=== PATIENT | male | born 1980 | race Caucasian/White ===

== ENCOUNTER 2018-09-11 23:34 | Emergency (ER) | payer MEDICAID ==
[~2018-09-11] VITALS: Ht 180.3 cm; Wt 95.5 kg
[2018-09-12 03:25] LABS: BASOPHILS % (AUTO) 1.3 % (0.0-2.0); EOSINOPHILS % (AUTO) 3.2 % (1.0-6.0); HEMATOCRIT 30.1 % (41-53); HEMOGLOBIN 10.3 g/dL (13.5-17.5); LYMPHOCYTES # (AUTO) 2.7 K/uL (1.0-4.8); LYMPHOCYTES % (AUTO) 62.1 % (22.0-44.0); MEAN CORPUSCULAR HEMOGLOBIN 32.3 pg (26.0-34.0); MEAN CORPUSCULAR VOLUME 95 fL (80-100); MONOCYTES # (AUTO) 0.4 K/uL (0.1-1.0); MONOCYTES % (AUTO) 8.4 % (2.0-9.0); NEUTROPHILS # (AUTO) 1.1 K/uL (1.8-7.7); PLATELET COUNT (AUTO) 52 K/uL (150-450); RED BLOOD CELL COUNT(AUTO) 3.17 MIL/uL (4.50-5.90); RED CELL DISTRIBUTION WIDTH 24.1 % (11.5-14.5)
[2018-09-12 03:44] LABS: ANION GAP 6 mmol/L (8-16); CARBON DIOXIDE 29 mmol/L (22-29); CHLORIDE 111 mmol/L (98-107); CREATININE 0.77 mg/dL (0.60-1.30); GLOMERULAR FILTR. RATE CALC > 60 mL/min (>60); GLUCOSE,RANDOM 97 mg/dL (70-110); POTASSIUM 3.4 mmol/L (3.5-5.1); SODIUM SERUM 146 mmol/L (136-145); UREA NITROGEN, BLOOD 5 mg/dL (7-18)
[2018-09-12 03:50] LABS: ALANINE AMINOTRANSFERASE 30 U/L (12-78); ALBUMIN 2.3 g/dL (3.4-5.0); ALKALINE PHOSPHATASE 158 U/L (46-116); ASPARTATE AMINOTRANSFERASE 88 U/L (15-37); BILIRUBIN,TOTAL 3.5 mg/dL (0.1-1.0); TOTAL PROTEIN, SERUM 7.2 g/dL (6.4-8.2)
[2018-09-12 04:30] VITALS: BP 139/75
== END 2018-09-12 06:28 | disposition home or self-care (01) ==
LOC: EMS 23:34
DX: F32.9 Major depressive disorder, single episode, unspecified (principal); F10.129 Alcohol abuse with intoxication, unspecified; I10 Essential (primary) hypertension; F17.210 Nicotine dependence, cigarettes, uncomplicated; Z90.49 Acquired absence of other specified parts of digestive tract; Z88.0 Allergy status to penicillin; Y90.8 Blood alcohol level of 240 mg/100 ml or more
CPT/HCPCS: 36415; 80053; 85025; 99284; G0480

== ENCOUNTER 2019-09-21 18:04 | Inpatient (IN) | payer MEDICAID, OTHER ==
[~2019-09-21] VITALS: Ht 180.3 cm; Wt 98.9 kg
[~2019-09-21 18:04] MED LIST: ESCI10TA PO; GABA-531 PO; TRAZ-257 PO
[2019-09-21 18:43] LABS: BASOPHILS % (AUTO) 0.8 % (0.0-2.0); EOSINOPHILS % (AUTO) 6.9 % (1.0-6.0); HEMATOCRIT 33.7 % (41-53); HEMOGLOBIN 11.5 g/dL (13.5-17.5); LYMPHOCYTES # (AUTO) 1.8 K/uL (1.0-4.8); MEAN CORPUSCULAR HEMOGLOBIN 31.8 pg (26.0-34.0); MEAN CORPUSCULAR VOLUME 94 fL (80-100); MONOCYTES # (AUTO) 0.5 K/uL (0.1-1.0); MONOCYTES % (AUTO) 11.3 % (2.0-9.0); RED BLOOD CELL COUNT(AUTO) 3.61 MIL/uL (4.50-5.90); RED CELL DISTRIBUTION WIDTH 18.5 % (11.5-14.5)
[2019-09-21 18:53] LABS: ANION GAP 10 mmol/L (8-16); CALCIUM, TOTAL 9.1 mg/dL (8.8-10.5); CARBON DIOXIDE 25 mmol/L (22-29); CHLORIDE 109 mmol/L (98-107); CREATININE 0.92 mg/dL (0.60-1.30); GLOMERULAR FILTR. RATE CALC > 60 mL/min (>60); GLUCOSE,RANDOM 88 mg/dL (70-110); POTASSIUM 3.8 mmol/L (3.5-5.1); SODIUM SERUM 144 mmol/L (136-145); UREA NITROGEN, BLOOD 8 mg/dL (7-18)
[2019-09-21 18:59] LABS: ALANINE AMINOTRANSFERASE 30 U/L (12-78); ALKALINE PHOSPHATASE 123 U/L (46-116); ASPARTATE AMINOTRANSFERASE 47 U/L (15-37); BILIRUBIN,TOTAL 4.6 mg/dL (0.1-1.0); TOTAL PROTEIN, SERUM 6.8 g/dL (6.4-8.2)
[2019-09-21 19:35] LABS: PLATELET COUNT (AUTO) 72 K/uL (150-450); PLATELET MORPHOLOGY COMMENT GIANT PLTS PRESENT
[2019-09-21 19:48] LABS: AMPHET/METH SCREEN,URINE NEGATIVE (NEGATIVE); BARBITURATE SCREEN, URINE NEGATIVE (NEGATIVE); BENZODIAZEPINES SCREEN,URINE NEGATIVE (NEGATIVE); CANNABINOID SCREEN,URINE NEGATIVE (NEGATIVE); COCAINE SCREEN,URINE NEGATIVE (NEGATIVE); METHADONE SCREEN, URINE NEGATIVE (NEGATIVE); OPIATE SCREEN,URINE NEGATIVE (NEGATIVE)
[2019-09-21 19:49] LABS: PHENCYCLIDINE SCREEN,URINE NEGATIVE (NEGATIVE)
[2019-09-21] MEDS ORDERED: ZOLPIDEM TARTRATE 10 MG TABLET PO PRN (22:45)
[2019-09-21] MEDS ORDERED: LORazepam 2 MG TABLET PO PRN (22:45)
[2019-09-22 01:13] VITALS: BP 135/81
[2019-09-22] MEDS ORDERED: INFLUENZA VIRUS VACCINE QVS 2019-20 (3YR+)/PF 60 MCG/0.5 ML SYRINGE IM ONE (01:30)
[2019-09-22 02:07] VITALS: BP 135/81
[2019-09-22] MEDS ORDERED: ONDANSETRON HCL 4 MG TABLET PO PRN (07:15)
[2019-09-22] MEDS ORDERED: CloNIDine HCL 0.1 MG TABLET PO PRN (07:15)
[2019-09-22] MEDS ORDERED: NICOTINE 14 MG/24 HOUR PATCH TD PRN (07:15)
[2019-09-22] MEDS ORDERED: DOCUSATE SODIUM 100 MG CAPSULE PO PRN (07:15)
[2019-09-22] MEDS ORDERED: ACETAMINOPHEN 325 MG TABLET PO PRN (07:15)
[2019-09-22] MEDS ORDERED: GuaiFENesin/D-METHORPHAN [SUGAR-FREE] 200-20MG/10 ML SYRUP UDCUP PO PRN (07:15)
[2019-09-22] MEDS ORDERED: MAGNESIUM HYDROXIDE SUSPENSION 30 ML UDCUP PO PRN (07:15)
[2019-09-22] MEDS ORDERED: PETROLATUM,WHITE 28 GM JELLY TP PRN (07:15)
[2019-09-22] MEDS ORDERED: MAG HYDROX/AL HYDROX/SIMETH ES 30 ML SUSPENSION UDCUP PO PRN (07:15)
[2019-09-22] MEDS ORDERED: ALBUTEROL SULFATE HFA 90 MCG/PUFF 8 GM INHALER IH PRN (07:15)
[2019-09-22] MEDS ORDERED: LOPERAMIDE HCL 2 MG CAPSULE PO PRN (07:15)
[2019-09-22 07:31] LABS: CHOL/HDL RATIO 2.3 (4.2-7.3)
[2019-09-22 09:44] VITALS: BP 124/63
[2019-09-22] MEDS: BACITRACIN 28.4 GM OINTMENT TP SCH ×2 (09:49→16:28)
[2019-09-22] MEDS: GABAPENTIN 300 MG CAPSULE PO SCH ×2 (13:13→16:29)
[2019-09-22 17:07] VITALS: BP 122/70
[2019-09-22] MEDS: TraZODone HCL 100 MG TABLET PO SCH (20:41)
[2019-09-23] MEDS: BACITRACIN 28.4 GM OINTMENT TP SCH ×2 (09:37→16:53)
[2019-09-23] MEDS: ESCITALOPRAM OXALATE 10 MG TABLET PO SCH (09:38)
[2019-09-23] MEDS: GABAPENTIN 300 MG CAPSULE PO SCH ×3 (09:38→16:53)
[2019-09-23 09:53] VITALS: BP 133/91
[2019-09-23 16:00] VITALS: BP 119/69
[2019-09-23 17:05] VITALS: BP 119/69
[2019-09-23] MEDS: TraZODone HCL 100 MG TABLET PO SCH (21:27)
[2019-09-24] MEDS: GABAPENTIN 300 MG CAPSULE PO SCH ×3 (09:18→16:09)
[2019-09-24] MEDS: ESCITALOPRAM OXALATE 10 MG TABLET PO SCH (09:18)
[2019-09-24] MEDS: BACITRACIN 28.4 GM OINTMENT TP SCH ×2 (09:18→16:09)
[2019-09-24 10:35] VITALS: BP 101/53
[2019-09-24] MEDS: QUEtiapine FUMARATE 25 MG TABLET PO SCH ×2 (12:49→16:09)
[2019-09-24 17:04] VITALS: BP 116/72
[2019-09-24] MEDS: TraZODone HCL 100 MG TABLET PO SCH (20:32)
[2019-09-25 08:52] VITALS: BP 118/75
[2019-09-25] MEDS: GABAPENTIN 300 MG CAPSULE PO SCH ×3 (09:17→16:23)
[2019-09-25] MEDS: ESCITALOPRAM OXALATE 10 MG TABLET PO SCH (09:17)
[2019-09-25] MEDS: QUEtiapine FUMARATE 25 MG TABLET PO SCH ×2 (09:18→16:23)
[2019-09-25] MEDS: BACITRACIN 28.4 GM OINTMENT TP SCH ×2 (10:08→16:23)
[2019-09-25 17:00] VITALS: BP 106/61
[2019-09-25] MEDS: TraZODone HCL 100 MG TABLET PO SCH (20:53)
[2019-09-26] MEDS: QUEtiapine FUMARATE 25 MG TABLET PO SCH ×2 (08:42→16:58)
[2019-09-26] MEDS: ESCITALOPRAM OXALATE 10 MG TABLET PO SCH (08:42)
[2019-09-26] MEDS: GABAPENTIN 300 MG CAPSULE PO SCH ×3 (08:42→16:58)
[2019-09-26] MEDS: BACITRACIN 28.4 GM OINTMENT TP SCH ×2 (08:43→16:58)
[2019-09-26 08:47] VITALS: BP 103/65
[2019-09-26 18:02] VITALS: BP 113/66
[2019-09-26] MEDS: TraZODone HCL 100 MG TABLET PO SCH (21:17)
[2019-09-27] MEDS: ESCITALOPRAM OXALATE 10 MG TABLET PO SCH (09:35)
[2019-09-27] MEDS: BACITRACIN 28.4 GM OINTMENT TP SCH ×2 (09:36→17:07)
[2019-09-27] MEDS: QUEtiapine FUMARATE 25 MG TABLET PO SCH ×2 (09:36→17:07)
[2019-09-27] MEDS: GABAPENTIN 300 MG CAPSULE PO SCH ×3 (09:36→17:07)
[2019-09-27 09:50] VITALS: BP 109/70
[2019-09-27 17:00] VITALS: BP 118/69
[2019-09-27] MEDS: TraZODone HCL 100 MG TABLET PO SCH (21:35)
[2019-09-28 08:30] VITALS: BP 115/66
[2019-09-28] MEDS: GABAPENTIN 300 MG CAPSULE PO SCH ×3 (09:51→16:22)
[2019-09-28] MEDS: QUEtiapine FUMARATE 25 MG TABLET PO SCH ×2 (09:52→16:23)
[2019-09-28] MEDS: ESCITALOPRAM OXALATE 10 MG TABLET PO SCH (09:52)
[2019-09-28] MEDS: BACITRACIN 28.4 GM OINTMENT TP SCH ×2 (09:54→16:22)
[2019-09-28 17:17] VITALS: BP 110/60
[2019-09-28] MEDS: TraZODone HCL 100 MG TABLET PO SCH (20:45)
[2019-09-29 02:39] VITALS: BP 117/66
[2019-09-29] MEDS: BACITRACIN 28.4 GM OINTMENT TP SCH ×2 (08:43→16:13)
[2019-09-29] MEDS: QUEtiapine FUMARATE 25 MG TABLET PO SCH ×2 (08:43→16:12)
[2019-09-29] MEDS: GABAPENTIN 300 MG CAPSULE PO SCH ×3 (08:43→16:12)
[2019-09-29] MEDS: ESCITALOPRAM OXALATE 10 MG TABLET PO SCH (08:43)
[2019-09-29 09:16] VITALS: BP 113/63
[2019-09-29 19:00] VITALS: BP 115/64
[2019-09-29] MEDS: TraZODone HCL 100 MG TABLET PO SCH (20:26)
[2019-09-30 04:37] VITALS: BP 126/77
[2019-09-30 09:15] VITALS: BP 122/78
[2019-09-30] MEDS: QUEtiapine FUMARATE 25 MG TABLET PO SCH ×2 (09:52→16:45)
[2019-09-30] MEDS: GABAPENTIN 300 MG CAPSULE PO SCH ×3 (09:52→16:44)
[2019-09-30] MEDS: ESCITALOPRAM OXALATE 10 MG TABLET PO SCH (09:52)
[2019-09-30] MEDS: BACITRACIN 28.4 GM OINTMENT TP SCH ×2 (09:53→16:45)
[2019-09-30 16:49] VITALS: BP 120/71
[2019-09-30] MEDS: TraZODone HCL 100 MG TABLET PO SCH (21:04)
[2019-10-01] MEDS: QUEtiapine FUMARATE 25 MG TABLET PO SCH ×2 (09:19→16:26)
[2019-10-01] MEDS: GABAPENTIN 300 MG CAPSULE PO SCH ×3 (09:19→16:26)
[2019-10-01] MEDS: ESCITALOPRAM OXALATE 10 MG TABLET PO SCH (09:20)
[2019-10-01] MEDS: BACITRACIN 28.4 GM OINTMENT TP SCH ×2 (09:20→17:00)
[2019-10-01 09:31] VITALS: BP 102/66
[2019-10-01] MEDS: TraZODone HCL 100 MG TABLET PO SCH (20:19)
[2019-10-01 22:06] VITALS: BP 112/70
[2019-10-02 05:59] VITALS: BP 123/70
[2019-10-02] MEDS: ESCITALOPRAM OXALATE 10 MG TABLET PO SCH (10:06)
[2019-10-02] MEDS: HALOPERIDOL 5 MG TABLET PO PRN (10:06)
[2019-10-02] MEDS: GABAPENTIN 300 MG CAPSULE PO SCH ×3 (10:06→17:08)
[2019-10-02] MEDS: IBUPROFEN 400 MG TABLET PO PRN (10:07)
[2019-10-02 10:28] VITALS: BP 125/59
[2019-10-02 17:07] VITALS: BP 122/66
[2019-10-02] MEDS: QUEtiapine FUMARATE 100 MG TABLET PO SCH (17:08)
[2019-10-02] MEDS: TraZODone HCL 100 MG TABLET PO SCH (20:34)
[2019-10-03 05:06] VITALS: BP 107/63
[2019-10-03] MEDS: BACITRACIN 28.4 GM OINTMENT TP SCH (08:00)
[2019-10-03 09:12] VITALS: BP 103/60
[2019-10-03] MEDS: GABAPENTIN 300 MG CAPSULE PO SCH ×3 (10:27→16:16)
[2019-10-03] MEDS: QUEtiapine FUMARATE 100 MG TABLET PO SCH ×2 (10:27→16:16)
[2019-10-03] MEDS: ESCITALOPRAM OXALATE 10 MG TABLET PO SCH (10:27)
[2019-10-03 16:43] VITALS: BP 117/61
[2019-10-03] MEDS: TraZODone HCL 150 MG TABLET PO SCH (20:13)
[2019-10-04 05:18] VITALS: BP 104/60
[2019-10-04 08:18] VITALS: BP 116/59
[2019-10-04] MEDS: GABAPENTIN 300 MG CAPSULE PO SCH ×3 (08:47→17:15)
[2019-10-04] MEDS: QUEtiapine FUMARATE 100 MG TABLET PO SCH ×2 (08:47→17:15)
[2019-10-04] MEDS: ESCITALOPRAM OXALATE 10 MG TABLET PO SCH (08:47)
[2019-10-04 16:51] VITALS: BP 106/67
[2019-10-04] MEDS: TraZODone HCL 150 MG TABLET PO SCH (20:22)
[2019-10-05 03:10] VITALS: BP 122/73
[2019-10-05] MEDS: IBUPROFEN 400 MG TABLET PO PRN (03:16)
[2019-10-05] MEDS: QUEtiapine FUMARATE 100 MG TABLET PO SCH ×2 (08:27→17:02)
[2019-10-05] MEDS: ESCITALOPRAM OXALATE 10 MG TABLET PO SCH (08:27)
[2019-10-05] MEDS: GABAPENTIN 300 MG CAPSULE PO SCH ×3 (08:27→17:02)
[2019-10-05 11:24] VITALS: BP 113/80
[2019-10-05 16:30] VITALS: BP 124/78
[2019-10-05] MEDS: TraZODone HCL 150 MG TABLET PO SCH (21:36)
[2019-10-06 01:37] VITALS: BP 111/60
[2019-10-06] MEDS: QUEtiapine FUMARATE 100 MG TABLET PO SCH (08:36)
[2019-10-06] MEDS: ESCITALOPRAM OXALATE 10 MG TABLET PO SCH (08:36)
[2019-10-06] MEDS: GABAPENTIN 300 MG CAPSULE PO SCH ×3 (08:36→16:27)
[2019-10-06 09:23] VITALS: BP 149/70
[2019-10-06 16:27] VITALS: BP 122/74
[2019-10-06] MEDS: HALOPERIDOL 5 MG TABLET PO PRN (16:30)
[2019-10-06] MEDS: TraZODone HCL 150 MG TABLET PO SCH (20:42)
[2019-10-06] MEDS: QUEtiapine FUMARATE 200 MG TABLET PO SCH (20:42)
[2019-10-06 20:46] VITALS: BP 125/77
[2019-10-06 23:18] VITALS: BP 125/77
[2019-10-06] MEDS: IBUPROFEN 400 MG TABLET PO PRN (23:18)
[2019-10-06 23:40] VITALS: BP 146/95
[2019-10-07 00:15] VITALS: BP 125/52
[2019-10-07 01:15] VITALS: BP 114/71
[2019-10-07 02:15] VITALS: BP 105/55
[2019-10-07] MEDS: ESCITALOPRAM OXALATE 20 MG TABLET PO SCH (09:14)
[2019-10-07] MEDS: GABAPENTIN 300 MG CAPSULE PO SCH ×3 (09:14→16:53)
[2019-10-07] MEDS: QUEtiapine FUMARATE 100 MG TABLET PO SCH (09:14)
[2019-10-07 09:43] VITALS: BP 129/71
[2019-10-07] MEDS: TraZODone HCL 150 MG TABLET PO SCH (20:36)
[2019-10-07] MEDS: QUEtiapine FUMARATE 200 MG TABLET PO SCH (20:36)
[2019-10-07 21:12] VITALS: BP 105/78
[2019-10-08] MEDS: QUEtiapine FUMARATE 100 MG TABLET PO SCH (09:26)
[2019-10-08] MEDS: GABAPENTIN 300 MG CAPSULE PO SCH ×3 (09:26→16:24)
[2019-10-08] MEDS: ESCITALOPRAM OXALATE 20 MG TABLET PO SCH (09:26)
[2019-10-08 09:58] VITALS: BP 127/71
[2019-10-08 16:03] VITALS: BP 141/69
[2019-10-08] MEDS: QUEtiapine FUMARATE 200 MG TABLET PO SCH (20:19)
[2019-10-08] MEDS: TraZODone HCL 150 MG TABLET PO SCH (20:19)
[2019-10-09] MEDS: ESCITALOPRAM OXALATE 20 MG TABLET PO SCH (08:50)
[2019-10-09] MEDS: GABAPENTIN 300 MG CAPSULE PO SCH ×3 (08:50→16:28)
[2019-10-09] MEDS: QUEtiapine FUMARATE 100 MG TABLET PO SCH (08:50)
[2019-10-09 12:58] VITALS: BP 138/79
[2019-10-09 17:00] VITALS: BP 119/59
[2019-10-09 17:02] VITALS: BP 119/57
[2019-10-09] MEDS: IBUPROFEN 400 MG TABLET PO PRN (17:06)
[2019-10-09] MEDS: QUEtiapine FUMARATE 200 MG TABLET PO SCH (21:13)
[2019-10-09] MEDS: TraZODone HCL 150 MG TABLET PO SCH (21:13)
[2019-10-10 04:30] VITALS: BP 128/69
[2019-10-10] MEDS: IBUPROFEN 400 MG TABLET PO PRN (04:39)
[2019-10-10 08:49] VITALS: BP 146/79
[2019-10-10] MEDS: ESCITALOPRAM OXALATE 20 MG TABLET PO SCH (08:50)
[2019-10-10] MEDS: GABAPENTIN 300 MG CAPSULE PO SCH ×3 (08:50→16:45)
[2019-10-10] MEDS: QUEtiapine FUMARATE 100 MG TABLET PO SCH (08:50)
[2019-10-10 17:28] VITALS: BP 122/73
[2019-10-10] MEDS: QUEtiapine FUMARATE 200 MG TABLET PO SCH (20:45)
[2019-10-10] MEDS: TraZODone HCL 150 MG TABLET PO SCH (20:50)
[2019-10-11 03:32] VITALS: BP 110/76
[2019-10-11] MEDS: GABAPENTIN 300 MG CAPSULE PO SCH ×3 (08:21→16:50)
[2019-10-11] MEDS: ESCITALOPRAM OXALATE 20 MG TABLET PO SCH (08:21)
[2019-10-11] MEDS: QUEtiapine FUMARATE 100 MG TABLET PO SCH (08:22)
[2019-10-11 09:22] VITALS: BP 121/84
[2019-10-11 16:30] VITALS: BP 135/82
[2019-10-11] MEDS: HALOPERIDOL 5 MG TABLET PO PRN (17:13)
== END 2019-10-11 19:45 | disposition left against medical advice (07) | DRG 885 ==
LOC: EMS 18:06 → 3EI 23:30
DX: F33.3 Major depressive disorder, recurrent, severe with psychotic symptoms (principal); R45.851 Suicidal ideations; K74.60 Unspecified cirrhosis of liver; F41.9 Anxiety disorder, unspecified; K59.00 Constipation, unspecified; D64.9 Anemia, unspecified; F10.10 Alcohol abuse, uncomplicated; Y90.9 Presence of alcohol in blood, level not specified; I10 Essential (primary) hypertension; F19.10 Other psychoactive substance abuse, uncomplicated; F17.210 Nicotine dependence, cigarettes, uncomplicated; Z53.29 Procedure and treatment not carried out because of patient's decision for other reasons; Z91.19 Patient's noncompliance with other medical treatment and regimen; Z90.49 Acquired absence of other specified parts of digestive tract; Z98.890 Other specified postprocedural states; Z79.899 Other long term (current) drug therapy; Z91.5 Personal history of self-harm; Z88.0 Allergy status to penicillin; Z59.0 Homelessness; Z28.21 Immunization not carried out because of patient refusal
CPT/HCPCS: 73502; 87081; G0480

== ENCOUNTER 2019-11-09 16:23 | Inpatient (IN) | payer MEDICAID, OTHER ==
[~2019-11-09] VITALS: Ht 180.3 cm; Wt 91.2 kg
[2019-11-09 17:40] LABS: EOSINOPHILS % (AUTO) 6.8 % (1.0-6.0); HEMOGLOBIN 10.8 g/dL (13.5-17.5); LYMPHOCYTES % (AUTO) 55.2 % (22.0-44.0); MEAN CORPUSCULAR HEMOGLOBIN 32.5 pg (26.0-34.0); MEAN CORPUSCULAR HGB CONC 33.6 G/dL (31.0-37.0); MEAN CORPUSCULAR VOLUME 97 fL (80-100); MONOCYTES # (AUTO) 0.3 K/uL (0.1-1.0); MONOCYTES % (AUTO) 8.8 % (2.0-9.0); NEUTROPHILS % (AUTO) 28.2 % (40.0-70.0); PLATELET COUNT (AUTO) 152 K/uL (150-450); RED BLOOD CELL COUNT(AUTO) 3.32 MIL/uL (4.50-5.90); RED CELL DISTRIBUTION WIDTH 18.9 % (11.5-14.5)
[2019-11-09 17:51] LABS: ANION GAP 7 mmol/L (8-16); CALCIUM, TOTAL 8.6 mg/dL (8.8-10.5); CARBON DIOXIDE 27 mmol/L (22-29); CHLORIDE 108 mmol/L (98-107); CREATININE 0.87 mg/dL (0.60-1.30); GLOMERULAR FILTR. RATE CALC > 60 mL/min (>60); GLUCOSE,RANDOM 83 mg/dL (70-110); POTASSIUM 3.6 mmol/L (3.5-5.1); SODIUM SERUM 142 mmol/L (136-145); UREA NITROGEN, BLOOD 6 mg/dL (7-18)
[2019-11-09 17:56] LABS: AMPHET/METH SCREEN,URINE NEGATIVE (NEGATIVE); BARBITURATE SCREEN, URINE NEGATIVE (NEGATIVE); BENZODIAZEPINES SCREEN,URINE NEGATIVE (NEGATIVE); CANNABINOID SCREEN,URINE NEGATIVE (NEGATIVE); COCAINE SCREEN,URINE NEGATIVE (NEGATIVE); METHADONE SCREEN, URINE NEGATIVE (NEGATIVE); OPIATE SCREEN,URINE NEGATIVE (NEGATIVE)
[2019-11-09 17:57] LABS: ALANINE AMINOTRANSFERASE 25 U/L (12-78); ALBUMIN 2.8 g/dL (3.4-5.0); ALKALINE PHOSPHATASE 133 U/L (46-116); ASPARTATE AMINOTRANSFERASE 40 U/L (15-37); BILIRUBIN,TOTAL 1.4 mg/dL (0.1-1.0); TOTAL PROTEIN, SERUM 7.7 g/dL (6.4-8.2)
[2019-11-09 18:02] LABS: PHENCYCLIDINE SCREEN,URINE NEGATIVE (NEGATIVE)
[2019-11-09] MEDS ORDERED: HALOPERIDOL 5 MG TABLET PO PRN (20:30)
[2019-11-09] MEDS ORDERED: LORazepam 2 MG TABLET PO PRN (20:30)
[2019-11-09] MEDS ORDERED: ZOLPIDEM TARTRATE 10 MG TABLET PO PRN (20:30)
[2019-11-09 22:24] VITALS: BP 120/69
[2019-11-10] MEDS: BACITRACIN 28.4 GM OINTMENT TP SCH (08:32)
[2019-11-10] MEDS: NICOTINE 21 MG/24 HOUR PATCH TD SCH (08:32)
[2019-11-10 08:50] LABS: CHOL/HDL RATIO 3.4 (4.2-7.3)
[2019-11-10 09:21] VITALS: BP 130/75
[2019-11-10 16:22] VITALS: BP 135/77
[2019-11-10] MEDS: QUEtiapine FUMARATE 100 MG TABLET PO SCH (20:29)
[2019-11-10] MEDS: TraZODone HCL 50 MG TABLET PO SCH (20:30)
[2019-11-11 08:30] VITALS: BP 126/65
[2019-11-11] MEDS: THIAMINE HCL 100 MG TABLET PO SCH (09:24)
[2019-11-11] MEDS: NICOTINE 21 MG/24 HOUR PATCH TD SCH (09:24)
[2019-11-11] MEDS: ESCITALOPRAM OXALATE 20 MG TABLET PO SCH (09:24)
[2019-11-11] MEDS: MULTIVITAMINS WITH MINERALS, THERAPEUTIC TABLET PO SCH (09:24)
[2019-11-11] MEDS: FOLIC ACID 1 MG TABLET PO SCH (09:24)
[2019-11-11] MEDS: BACITRACIN 28.4 GM OINTMENT TP SCH (09:25)
[2019-11-11 18:27] VITALS: BP 138/74
[2019-11-11] MEDS: QUEtiapine FUMARATE 100 MG TABLET PO SCH (20:39)
[2019-11-11] MEDS: TraZODone HCL 50 MG TABLET PO SCH (20:39)
[2019-11-12 08:49] VITALS: BP 125/86
[2019-11-12] MEDS: FOLIC ACID 1 MG TABLET PO SCH (08:53)
[2019-11-12] MEDS: NICOTINE 21 MG/24 HOUR PATCH TD SCH (08:53)
[2019-11-12] MEDS: MULTIVITAMINS WITH MINERALS, THERAPEUTIC TABLET PO SCH (08:53)
[2019-11-12] MEDS: ESCITALOPRAM OXALATE 20 MG TABLET PO SCH (08:53)
[2019-11-12] MEDS: THIAMINE HCL 100 MG TABLET PO SCH (08:53)
[2019-11-12] MEDS: BACITRACIN 28.4 GM OINTMENT TP SCH (08:54)
[2019-11-12] MEDS: QUEtiapine FUMARATE 25 MG TABLET PO SCH (12:17)
[2019-11-12 16:38] VITALS: BP 117/60
[2019-11-12] MEDS: TraZODone HCL 50 MG TABLET PO SCH (20:36)
[2019-11-12] MEDS: QUEtiapine FUMARATE 200 MG TABLET PO SCH (20:36)
[2019-11-13] MEDS: MULTIVITAMINS WITH MINERALS, THERAPEUTIC TABLET PO SCH (09:00)
[2019-11-13] MEDS: FOLIC ACID 1 MG TABLET PO SCH (09:00)
[2019-11-13] MEDS: THIAMINE HCL 100 MG TABLET PO SCH (09:00)
[2019-11-13] MEDS: BACITRACIN 28.4 GM OINTMENT TP SCH (09:00)
[2019-11-13] MEDS: ESCITALOPRAM OXALATE 20 MG TABLET PO SCH (09:00)
[2019-11-13] MEDS: NICOTINE 21 MG/24 HOUR PATCH TD SCH (09:00)
[2019-11-13] MEDS: QUEtiapine FUMARATE 25 MG TABLET PO SCH (09:00)
[2019-11-13 09:02] VITALS: BP 104/65
[2019-11-13 18:56] VITALS: BP 94/54
[2019-11-13] MEDS: TraZODone HCL 50 MG TABLET PO SCH (20:43)
[2019-11-13] MEDS: QUEtiapine FUMARATE 200 MG TABLET PO SCH (20:43)
[2019-11-14 08:58] VITALS: BP 59/40
[2019-11-14 09:30] VITALS: BP 98/69
[2019-11-14] MEDS: THIAMINE HCL 100 MG TABLET PO SCH (11:32)
[2019-11-14] MEDS: MULTIVITAMINS WITH MINERALS, THERAPEUTIC TABLET PO SCH (11:32)
[2019-11-14] MEDS: FOLIC ACID 1 MG TABLET PO SCH (11:32)
[2019-11-14] MEDS: ESCITALOPRAM OXALATE 20 MG TABLET PO SCH (11:33)
[2019-11-14] MEDS: BACITRACIN 28.4 GM OINTMENT TP SCH (11:35)
[2019-11-14] MEDS: NICOTINE 21 MG/24 HOUR PATCH TD SCH (11:43)
[2019-11-14 13:30] VITALS: BP 100/58
[2019-11-14 19:45] VITALS: BP 105/64
[2019-11-14] MEDS: QUEtiapine FUMARATE 200 MG TABLET PO SCH (20:17)
[2019-11-14] MEDS: TraZODone HCL 50 MG TABLET PO SCH (20:17)
[2019-11-15 04:39] VITALS: BP 82/59
[2019-11-15] MEDS ORDERED: IBUPROFEN 400 MG TABLET PO PRN (06:30)
[2019-11-15 08:00] VITALS: BP 95/54
[2019-11-15] MEDS: NICOTINE 21 MG/24 HOUR PATCH TD SCH (08:47)
[2019-11-15] MEDS: FOLIC ACID 1 MG TABLET PO SCH (08:47)
[2019-11-15] MEDS: BACITRACIN 28.4 GM OINTMENT TP SCH (08:47)
[2019-11-15] MEDS: ESCITALOPRAM OXALATE 20 MG TABLET PO SCH (08:47)
[2019-11-15] MEDS: MULTIVITAMINS WITH MINERALS, THERAPEUTIC TABLET PO SCH (08:47)
[2019-11-15] MEDS: THIAMINE HCL 100 MG TABLET PO SCH (08:47)
[2019-11-15 18:21] VITALS: BP 109/65
[2019-11-15] MEDS: QUEtiapine FUMARATE 200 MG TABLET PO SCH (20:18)
[2019-11-15] MEDS: TraZODone HCL 50 MG TABLET PO SCH (20:18)
[2019-11-16 08:00] VITALS: BP 107/63
[2019-11-16] MEDS: ESCITALOPRAM OXALATE 20 MG TABLET PO SCH (08:36)
[2019-11-16] MEDS: NICOTINE 21 MG/24 HOUR PATCH TD SCH (08:36)
[2019-11-16] MEDS: THIAMINE HCL 100 MG TABLET PO SCH (08:36)
[2019-11-16] MEDS: FOLIC ACID 1 MG TABLET PO SCH (08:36)
[2019-11-16] MEDS: MULTIVITAMINS WITH MINERALS, THERAPEUTIC TABLET PO SCH (08:36)
[2019-11-16] MEDS: BACITRACIN 28.4 GM OINTMENT TP SCH (09:15)
[2019-11-16] MEDS ORDERED: TRAZ-252 PO (13:33)
[2019-11-16] MEDS ORDERED: QUET200T PO (13:33)
[2019-11-16] MEDS ORDERED: ESCI20TA PO (13:33)
== END 2019-11-16 14:50 | disposition home or self-care (01) | DRG 885 ==
LOC: EMS 16:23 → 3EI 21:00
PROVIDERS: ADMIT Psychiatry & Neurology Psychiatry; ATTEND Psychiatry & Neurology Psychiatry
DX: F25.9 Schizoaffective disorder, unspecified (principal); F10.231 Alcohol dependence with withdrawal delirium; R45.851 Suicidal ideations; D64.9 Anemia, unspecified; I10 Essential (primary) hypertension; K70.30 Alcoholic cirrhosis of liver without ascites; Z59.0 Homelessness; Z87.891 Personal history of nicotine dependence
CPT/HCPCS: 87635; G0480

== ENCOUNTER 2020-06-04 00:06 | Inpatient (IN) | payer MEDICAID, OTHER ==
[~2020-06-04] VITALS: Ht 180.3 cm; Wt 89.9 kg
[~2020-06-04 00:06] MED LIST changes: -ESCI10TA PO; +ESCI20TA43 PO; -GABA-531 PO; +QUET300T2 PO; +TRAZ-252 PO; -TRAZ-257 PO
[2020-06-04 01:42] LABS: COVID AG,FIA SOURCE NASOPHARYNGEAL
[2020-06-04 01:43] LABS: BASOPHILS % (AUTO) 0.6 % (0.0-2.0); EOSINOPHILS % (AUTO) 6.9 % (1.0-6.0); HEMATOCRIT 35.6 % (41-53); HEMOGLOBIN 12.2 g/dL (13.5-17.5); LYMPHOCYTES # (AUTO) 1.9 K/uL (1.0-4.8); LYMPHOCYTES % (AUTO) 48.6 % (22.0-44.0); MEAN CORPUSCULAR HGB CONC 34.2 G/dL (31.0-37.0); MEAN CORPUSCULAR VOLUME 100 fL (80-100); MONOCYTES # (AUTO) 0.4 K/uL (0.1-1.0); MONOCYTES % (AUTO) 9.1 % (2.0-9.0); NEUTROPHILS # (AUTO) 1.4 K/uL (1.8-7.7); NEUTROPHILS % (AUTO) 34.8 % (40.0-70.0); RED BLOOD CELL COUNT(AUTO) 3.58 MIL/uL (4.50-5.90); RED CELL DISTRIBUTION WIDTH 20.1 % (11.5-14.5)
[2020-06-04 01:53] LABS: ANION GAP 7 mmol/L (8-16); CARBON DIOXIDE 28 mmol/L (22-29); CHLORIDE 108 mmol/L (98-107); CREATININE 0.78 mg/dL (0.60-1.30); GLOMERULAR FILTR. RATE CALC > 60 mL/min (>60); GLUCOSE,RANDOM 94 mg/dL (70-110); POTASSIUM 3.7 mmol/L (3.5-5.1); SODIUM SERUM 143 mmol/L (136-145); UREA NITROGEN, BLOOD 5 mg/dL (7-18)
[2020-06-04 02:00] LABS: ALANINE AMINOTRANSFERASE 52 U/L (12-78); ALBUMIN 3.2 g/dL (3.4-5.0); ALKALINE PHOSPHATASE 160 U/L (46-116); ASPARTATE AMINOTRANSFERASE 77 U/L (15-37); BILIRUBIN,TOTAL 2.7 mg/dL (0.1-1.0); TOTAL PROTEIN, SERUM 6.9 g/dL (6.4-8.2)
[2020-06-04 02:02] LABS: AMPHET/METH SCREEN,URINE NEGATIVE (NEGATIVE); BARBITURATE SCREEN, URINE NEGATIVE (NEGATIVE); BENZODIAZEPINES SCREEN,URINE NEGATIVE (NEGATIVE); CANNABINOID SCREEN,URINE NEGATIVE (NEGATIVE); COCAINE SCREEN,URINE NEGATIVE (NEGATIVE); METHADONE SCREEN, URINE NEGATIVE (NEGATIVE); OPIATE SCREEN,URINE NEGATIVE (NEGATIVE)
[2020-06-04 02:04] LABS: PHENCYCLIDINE SCREEN,URINE NEGATIVE (NEGATIVE)
[2020-06-04] MEDS ORDERED: LORazepam 2 MG TABLET PO PRN (02:30)
[2020-06-04] MEDS ORDERED: HALOPERIDOL 5 MG TABLET PO PRN (02:30)
[2020-06-04 03:06] LABS: PLATELET COUNT (AUTO) 58 K/uL (150-450)
[2020-06-04 15:51] LABS: APPEARANCE,URINE CLEAR (CLEAR); GLUCOSE, URINE (UA) NEGATIVE (NEGATIVE); KETONES,URINE NEGATIVE (NEGATIVE); NITRATE,URINE NEGATIVE (NEGATIVE); PROTEIN,URINE NEGATIVE (NEGATIVE)
[2020-06-04 15:53] LABS: BILIRUBIN,URINE PRELIM. POSITIVE (NEGATIVE)
[2020-06-04 15:54] LABS: LEUKOCYTE ESTERASE ,URINE SMALL (NEGATIVE); OCCULT BLOOD,URINE TRACE (NEGATIVE)
[2020-06-04 15:55] LABS: BACTERIA,URINE None Seen /HPF (None Seen); RBC,URINE 0-2 /HPF (0-2)
[2020-06-04] MEDS ORDERED: PETROLATUM,WHITE 28 GM JELLY TP PRN (22:15)
[2020-06-04] MEDS ORDERED: CloNIDine HCL 0.1 MG TABLET PO PRN (22:15)
[2020-06-04] MEDS ORDERED: ACETAMINOPHEN 325 MG TABLET PO PRN (22:15)
[2020-06-04] MEDS ORDERED: DOCUSATE SODIUM 100 MG CAPSULE PO PRN (22:15)
[2020-06-04] MEDS ORDERED: MAG HYDROX/AL HYDROX/SIMETH ES 30 ML SUSPENSION UDCUP PO PRN (22:15)
[2020-06-04] MEDS ORDERED: BENZOCAINE/MENTHOL LOZENGE PO PRN (22:15)
[2020-06-04] MEDS ORDERED: ONDANSETRON HCL 4 MG TABLET PO PRN (22:15)
[2020-06-04] MEDS ORDERED: BACITRACIN 28 GM OINTMENT TP PRN (22:15)
[2020-06-04] MEDS ORDERED: LOPERAMIDE HCL 2 MG CAPSULE PO PRN (22:15)
[2020-06-04] MEDS ORDERED: ALBUTEROL SULFATE HFA 90 MCG/PUFF 8 GM INHALER IH PRN (22:15)
[2020-06-04] MEDS ORDERED: MAGNESIUM HYDROXIDE SUSPENSION 30 ML UDCUP PO PRN (22:15)
[2020-06-04] MEDS ORDERED: OMEPRAZOLE 20 MG CAPSULE PO PRN (22:15)
[2020-06-04 22:55] VITALS: BP 135/85
[2020-06-05 00:23] VITALS: BP 125/68
[2020-06-05 08:15] LABS: CHOL/HDL RATIO 3.3 (4.2-7.3)
[2020-06-05 08:22] VITALS: BP 118/60
[2020-06-05] MEDS: NICOTINE 21 MG/24 HOUR PATCH TD SCH (09:40)
[2020-06-05 16:24] VITALS: BP 122/70
[2020-06-05 16:29] VITALS: BP 122/70
[2020-06-05] MEDS: IBUPROFEN 600 MG TABLET PO PRN (17:24)
[2020-06-05] MEDS: OLANZapine 7.5 MG TABLET PO SCH (20:36)
[2020-06-05] MEDS: ZOLPIDEM TARTRATE 10 MG TABLET PO PRN (20:36)
[2020-06-06 00:34] VITALS: BP 115/69
[2020-06-06 08:18] LABS: BASOPHILS % (AUTO) 0.9 % (0.0-2.0); EOSINOPHILS % (AUTO) 5.6 % (1.0-6.0); HEMATOCRIT 34.9 % (41-53); HEMOGLOBIN 11.9 g/dL (13.5-17.5); LYMPHOCYTES # (AUTO) 1.5 K/uL (1.0-4.8); LYMPHOCYTES % (AUTO) 51.7 % (22.0-44.0); MEAN CORPUSCULAR HEMOGLOBIN 33.9 pg (26.0-34.0); MEAN CORPUSCULAR HGB CONC 34.1 G/dL (31.0-37.0); MEAN CORPUSCULAR VOLUME 99 fL (80-100); MONOCYTES # (AUTO) 0.3 K/uL (0.1-1.0); MONOCYTES % (AUTO) 9.8 % (2.0-9.0); NEUTROPHILS # (AUTO) 0.9 K/uL (1.8-7.7); PLATELET COUNT (AUTO) 54 K/uL (150-450); RED BLOOD CELL COUNT(AUTO) 3.51 MIL/uL (4.50-5.90); RED CELL DISTRIBUTION WIDTH 19.9 % (11.5-14.5)
[2020-06-06 08:38] LABS: ALANINE AMINOTRANSFERASE 34 U/L (12-78); ALBUMIN 2.6 g/dL (3.4-5.0); ALKALINE PHOSPHATASE 132 U/L (46-116); ANION GAP 6 mmol/L (8-16); ASPARTATE AMINOTRANSFERASE 44 U/L (15-37); BILIRUBIN,TOTAL 2.6 mg/dL (0.1-1.0); CALCIUM, TOTAL 9.3 mg/dL (8.8-10.5); CARBON DIOXIDE 27 mmol/L (22-29); CHLORIDE 107 mmol/L (98-107); CREATININE 0.77 mg/dL (0.60-1.30); GLOMERULAR FILTR. RATE CALC > 60 mL/min (>60); GLUCOSE,RANDOM 80 mg/dL (70-110); POTASSIUM 3.8 mmol/L (3.5-5.1); SODIUM SERUM 140 mmol/L (136-145); UREA NITROGEN, BLOOD 12 mg/dL (7-18)
[2020-06-06] MEDS: NICOTINE 21 MG/24 HOUR PATCH TD SCH (08:45)
[2020-06-06] MEDS: SERTRALINE HCL 50 MG TABLET PO SCH (08:45)
[2020-06-06 16:01] VITALS: BP 105/68
[2020-06-06] MEDS: IBUPROFEN 600 MG TABLET PO PRN (16:01)
[2020-06-06 16:15] VITALS: BP 105/68
[2020-06-06] MEDS: OLANZapine 7.5 MG TABLET PO SCH (20:09)
[2020-06-06] MEDS: ZOLPIDEM TARTRATE 10 MG TABLET PO PRN (20:48)
[2020-06-07 06:03] VITALS: BP 124/74
[2020-06-07 08:04] VITALS: BP 111/64
[2020-06-07] MEDS: SERTRALINE HCL 50 MG TABLET PO SCH (09:38)
[2020-06-07] MEDS: NICOTINE 21 MG/24 HOUR PATCH TD SCH (09:39)
[2020-06-07 16:10] VITALS: BP 134/81
[2020-06-07] MEDS: OLANZapine 7.5 MG TABLET PO SCH (20:34)
[2020-06-07] MEDS: ZOLPIDEM TARTRATE 10 MG TABLET PO PRN (20:34)
[2020-06-08 00:12] VITALS: BP 141/73
[2020-06-08 08:04] VITALS: BP 136/75
[2020-06-08] MEDS: SERTRALINE HCL 50 MG TABLET PO SCH (09:17)
[2020-06-08] MEDS: NICOTINE 21 MG/24 HOUR PATCH TD SCH (09:17)
[2020-06-08 16:10] VITALS: BP 144/75
[2020-06-08] MEDS: ZOLPIDEM TARTRATE 10 MG TABLET PO PRN (21:12)
[2020-06-08] MEDS: OLANZapine 7.5 MG TABLET PO SCH (21:12)
[2020-06-09 00:26] VITALS: BP 104/62
[2020-06-09] MEDS: SERTRALINE HCL 50 MG TABLET PO SCH (08:14)
[2020-06-09] MEDS: NICOTINE 21 MG/24 HOUR PATCH TD SCH (08:15)
[2020-06-09 08:22] VITALS: BP 126/74
[2020-06-09 16:02] VITALS: BP 110/70
[2020-06-09] MEDS: OLANZapine 7.5 MG TABLET PO SCH (20:17)
[2020-06-09] MEDS: ZOLPIDEM TARTRATE 10 MG TABLET PO PRN (20:56)
[2020-06-10 05:58] VITALS: BP 110/70
[2020-06-10] MEDS: SERTRALINE HCL 50 MG TABLET PO SCH (08:20)
[2020-06-10] MEDS: NICOTINE 21 MG/24 HOUR PATCH TD SCH (08:21)
[2020-06-10] MEDS ORDERED: FOLIC ACID 1 MG TABLET PO SCH (09:00)
[2020-06-10] MEDS ORDERED: THIAMINE 100 MG TABLET PO SCH (09:00)
[2020-06-10 09:04] VITALS: BP 117/66
[2020-06-10] MEDS ORDERED: SERT50TA12 PO (10:38)
[2020-06-10] MEDS ORDERED: OLAN7.5T2 PO (10:38)
== END 2020-06-10 13:30 | disposition home or self-care (01) | DRG 750 ==
LOC: EMS 00:06 → B2S 02:19
PROVIDERS: ADMIT Psychiatry & Neurology Psychiatry; ATTEND Psychiatry & Neurology Psychiatry
DX: F25.1 Schizoaffective disorder, depressive type (principal); I10 Essential (primary) hypertension; R45.851 Suicidal ideations; F10.10 Alcohol abuse, uncomplicated; Y90.9 Presence of alcohol in blood, level not specified; F41.9 Anxiety disorder, unspecified; Z20.828 Contact with and (suspected) exposure to other viral communicable diseases; K74.60 Unspecified cirrhosis of liver; Z87.891 Personal history of nicotine dependence
CPT/HCPCS: 80074; 87081; 87426; G0480

== ENCOUNTER 2021-01-29 01:01 | Emergency (ER) | payer MEDICAID, OTHER ==
[~2021-01-29] VITALS: Ht 180.3 cm; Wt 90.9 kg
[~2021-01-29 01:01] MED LIST changes: -ESCI20TA43 PO; +OLAN7.5T22 PO; -QUET300T2 PO; +SERT-158 PO; -TRAZ-252 PO
[2021-01-29 02:10] LABS: BASOPHILS % (AUTO) 1.4 % (0.0-2.0); EOSINOPHILS % (AUTO) 5.4 % (1.0-6.0); HEMATOCRIT 37.6 % (41-53); HEMOGLOBIN 12.6 g/dL (13.5-17.5); LYMPHOCYTES # (AUTO) 2.4 K/uL (1.0-4.8); LYMPHOCYTES % (AUTO) 45.6 % (22.0-44.0); MEAN CORPUSCULAR HEMOGLOBIN 32.2 pg (26.0-34.0); MEAN CORPUSCULAR HGB CONC 33.5 G/dL (31.0-37.0); MEAN CORPUSCULAR VOLUME 96 fL (80-100); MONOCYTES # (AUTO) 0.6 K/uL (0.1-1.0); MONOCYTES % (AUTO) 11.7 % (2.0-9.0); NEUTROPHILS # (AUTO) 1.9 K/uL (1.8-7.7); NEUTROPHILS % (AUTO) 35.9 % (40.0-70.0); PLATELET COUNT (AUTO) 123 K/uL (150-450); RED BLOOD CELL COUNT(AUTO) 3.91 MIL/uL (4.50-5.90)
[2021-01-29] MEDS ORDERED: ChlordiazePOXIDE HCL 25 MG CAPSULE PO ONE (02:15)
[2021-01-29] MEDS ORDERED: HALOPERIDOL 5 MG TABLET PO ONE (02:15)
[2021-01-29 02:26] LABS: ANION GAP 8 mmol/L (8-16); CARBON DIOXIDE 30 mmol/L (22-29); CHLORIDE 109 mmol/L (98-107); CREATININE 1.02 mg/dL (0.60-1.30); GLOMERULAR FILTR. RATE CALC > 60 mL/min (>60); GLUCOSE,RANDOM 111 mg/dL (70-110); POTASSIUM 4.3 mmol/L (3.5-5.1); SODIUM SERUM 147 mmol/L (136-145); UREA NITROGEN, BLOOD 9 mg/dL (7-18)
[2021-01-29 02:32] LABS: ALANINE AMINOTRANSFERASE 42 U/L (12-78); ALBUMIN 3.6 g/dL (3.4-5.0); ALKALINE PHOSPHATASE 173 U/L (46-116); ASPARTATE AMINOTRANSFERASE 91 U/L (15-37); BILIRUBIN,TOTAL 1.8 mg/dL (0.1-1.0); TOTAL PROTEIN, SERUM 8.2 g/dL (6.4-8.2)
[2021-01-29 06:22] VITALS: BP 125/73
== END 2021-01-29 06:41 | disposition home or self-care (01) ==
LOC: EMS 01:02
DX: F20.9 Schizophrenia, unspecified (principal); F10.129 Alcohol abuse with intoxication, unspecified; Y90.8 Blood alcohol level of 240 mg/100 ml or more
CPT/HCPCS: 36415; 80053; 85025; 99284; G0480; 99283

== ENCOUNTER 2021-05-10 13:53 | Emergency (ER) | payer OTHER ==
[~2021-05-10] VITALS: Ht 180.3 cm; Wt 100.0 kg
[2021-05-10 15:51] LABS: COVID AG,FIA SOURCE NASOPHARYNGEAL
[2021-05-10 15:55] LABS: BASOPHILS % (AUTO) 1.2 % (0.0-2.0); EOSINOPHILS % (AUTO) 6.9 % (1.0-6.0); HEMATOCRIT 36.6 % (41-53); HEMOGLOBIN 12.3 g/dL (13.5-17.5); LYMPHOCYTES # (AUTO) 1.8 K/uL (1.0-4.8); MEAN CORPUSCULAR HEMOGLOBIN 33.7 pg (26.0-34.0); MEAN CORPUSCULAR HGB CONC 33.6 G/dL (31.0-37.0); MEAN CORPUSCULAR VOLUME 100 fL (80-100); MONOCYTES # (AUTO) 0.6 K/uL (0.1-1.0); MONOCYTES % (AUTO) 13.2 % (2.0-9.0); NEUTROPHILS # (AUTO) 1.7 K/uL (1.8-7.7); NEUTROPHILS % (AUTO) 37.7 % (40.0-70.0); RED BLOOD CELL COUNT(AUTO) 3.64 MIL/uL (4.50-5.90)
[2021-05-10 16:08] LABS: ANION GAP 16 mmol/L (8-16); CALCIUM, TOTAL 7.7 mg/dL (8.8-10.5); CARBON DIOXIDE 23 mmol/L (22-29); CHLORIDE 104 mmol/L (98-107); CREATININE 0.69 mg/dL (0.60-1.30); GLOMERULAR FILTR. RATE CALC > 60 mL/min (>60); GLUCOSE,RANDOM 103 mg/dL (70-110); POTASSIUM 3.2 mmol/L (3.5-5.1); SODIUM SERUM 143 mmol/L (136-145); UREA NITROGEN, BLOOD 6 mg/dL (7-18)
[2021-05-10 16:10] LABS: ALANINE AMINOTRANSFERASE 70 U/L (12-78); ALBUMIN 2.7 g/dL (3.4-5.0); ALKALINE PHOSPHATASE 181 U/L (46-116); ASPARTATE AMINOTRANSFERASE 184 U/L (15-37); BILIRUBIN,TOTAL 3.3 mg/dL (0.1-1.0); TOTAL PROTEIN, SERUM 8.3 g/dL (6.4-8.2)
[2021-05-10 16:43] LABS: PLATELET COUNT (AUTO) 79 K/uL (150-450); PLATELET MORPHOLOGY COMMENT LARGE PLTS PRESENT
[2021-05-10] MEDS ORDERED: POTASSIUM CHLORIDE 20 MEQ ER TABLET PO ONE (17:45)
[2021-05-10 17:51] VITALS: BP 133/90
== END 2021-05-10 17:52 | disposition home or self-care (01) ==
LOC: EMS 14:00
DX: F10.129 Alcohol abuse with intoxication, unspecified (principal); Y90.8 Blood alcohol level of 240 mg/100 ml or more; Z20.822 Contact with and (suspected) exposure to COVID-19; F20.9 Schizophrenia, unspecified
CPT/HCPCS: 36415; 80053; 85025; 87426; 99283; G0480

== ENCOUNTER 2021-07-06 19:50 | Emergency (ER) | payer OTHER ==
[~2021-07-06] VITALS: Ht 180.3 cm; Wt 45.5 kg
[2021-07-06] MEDS ORDERED: QUET200T PO (20:54)
[2021-07-06] MEDS ORDERED: LIDOCAINE 1% 10 ML VIAL SQ ONE (22:30)
[2021-07-06] MEDS ORDERED: PERTUSS(ACELL),DIPH,TET VAC/PF 0.5 ML SYRINGE IM. ONE (22:30)
[2021-07-06] MEDS ORDERED: BACITRACIN 0.9 GM PACKET OINTMENT TP ONE (22:30)
[2021-07-06 22:50] VITALS: BP 133/78
== END 2021-07-07 01:44 | disposition home or self-care (01) ==
LOC: EMS 19:54
DX: S01.112A Laceration without foreign body of left eyelid and periocular area, initial encounter (principal); F10.20 Alcohol dependence, uncomplicated; F25.9 Schizoaffective disorder, unspecified; F32.9 Major depressive disorder, single episode, unspecified; Y90.9 Presence of alcohol in blood, level not specified; Y08.89XA Assault by other specified means, initial encounter; Y93.89 Activity, other specified; Y92.89 Other specified places as the place of occurrence of the external cause; Y99.8 Other external cause status
CPT/HCPCS: 12013; 70450; 72125; 99284; J3490

== ENCOUNTER 2021-10-17 15:31 | Inpatient (IN) | payer MEDICAID ==
[~2021-10-17] VITALS: Ht 180.3 cm; Wt 109.3 kg
[~2021-10-17 15:31] MED LIST changes: +QUET200T PO
[2021-10-17] MEDS ORDERED: QUET300T2 PO (20:25)
[2021-10-17] MEDS ORDERED: QUET25TA PO (20:25)
[2021-10-17] MEDS ORDERED: ENOX40DI9 SQ (20:26)
[2021-10-17] MEDS ORDERED: THIA100T80 PO (20:26)
[2021-10-17] MEDS ORDERED: FOLI0.4T6 PO (20:27)
[2021-10-17] MEDS ORDERED: MULT-660 PO (20:27)
[2021-10-18] MEDS ORDERED: ZOLPIDEM TARTRATE 10 MG TABLET PO PRN
[2021-10-18] MEDS ORDERED: INFLUENZA VIRUS VACCINE QVS 2021-22 (6MO+)/PF 60 MCG/0.5 ML SYRINGE IM. ONE (00:15)
[2021-10-18] MEDS: LORazepam 2 MG TABLET PO PRN ×3 (00:57→16:02)
[2021-10-18 02:11] VITALS: BP 139/68
[2021-10-18] MEDS ORDERED: PETROLATUM,WHITE 28 GM JELLY TP PRN (05:45)
[2021-10-18] MEDS ORDERED: MAGNESIUM HYDROXIDE SUSPENSION 30 ML UDCUP PO PRN (05:45)
[2021-10-18] MEDS ORDERED: CloNIDine HCL 0.1 MG TABLET PO PRN (05:45)
[2021-10-18] MEDS ORDERED: ONDANSETRON HCL 4 MG TABLET PO PRN (05:45)
[2021-10-18] MEDS ORDERED: MAG HYDROX/AL HYDROX/SIMETH ES 30 ML SUSPENSION UDCUP PO PRN (05:45)
[2021-10-18] MEDS ORDERED: OMEPRAZOLE 20 MG CAPSULE PO PRN (05:45)
[2021-10-18] MEDS ORDERED: BENZOCAINE/MENTHOL LOZENGE PO PRN (05:45)
[2021-10-18] MEDS ORDERED: BACITRACIN 28 GM OINTMENT TP PRN (05:45)
[2021-10-18] MEDS ORDERED: ACETAMINOPHEN 325 MG TABLET PO PRN (05:45)
[2021-10-18] MEDS ORDERED: LOPERAMIDE HCL 2 MG CAPSULE PO PRN (05:45)
[2021-10-18] MEDS ORDERED: DOCUSATE SODIUM 100 MG CAPSULE PO PRN (05:45)
[2021-10-18] MEDS ORDERED: ALBUTEROL SULFATE HFA 90 MCG/PUFF 8 GM INHALER IH PRN (05:45)
[2021-10-18 08:01] LABS: BASOPHILS % (AUTO) 1.7 % (0.0-2.0); EOSINOPHILS % (AUTO) 5.6 % (1.0-6.0); HEMATOCRIT 30.4 % (41-53); HEMOGLOBIN 10.4 g/dL (13.5-17.5); LYMPHOCYTES # (AUTO) 1.3 K/uL (1.0-4.8); LYMPHOCYTES % (AUTO) 39.4 % (22.0-44.0); MEAN CORPUSCULAR HEMOGLOBIN 32.3 pg (26.0-34.0); MEAN CORPUSCULAR HGB CONC 34.3 G/dL (31.0-37.0); MEAN CORPUSCULAR VOLUME 94 fL (80-100); MONOCYTES # (AUTO) 0.4 K/uL (0.1-1.0); MONOCYTES % (AUTO) 12.3 % (2.0-9.0); NEUTROPHILS # (AUTO) 1.4 K/uL (1.8-7.7); PLATELET COUNT (AUTO) 145 K/uL (150-450); RED BLOOD CELL COUNT(AUTO) 3.22 MIL/uL (4.50-5.90); RED CELL DISTRIBUTION WIDTH 18.5 % (11.5-14.5)
[2021-10-18 08:18] LABS: HEMOGLOBIN A1C 4.9 % (3.8-5.6)
[2021-10-18 08:32] LABS: ALANINE AMINOTRANSFERASE 19 U/L (12-78); ALBUMIN 2.3 g/dL (3.4-5.0); ALKALINE PHOSPHATASE 168 U/L (46-116); ANION GAP 4 mmol/L (8-16); ASPARTATE AMINOTRANSFERASE 28 U/L (15-37); BILIRUBIN,TOTAL 0.7 mg/dL (0.1-1.0); CALCIUM, TOTAL 8.7 mg/dL (8.8-10.5); CARBON DIOXIDE 27 mmol/L (22-29); CHLORIDE 110 mmol/L (98-107); CHOL/HDL RATIO 2.8 (4.2-7.3); CHOLESTEROL 116 mg/dL (131-200); CREATININE 0.83 mg/dL (0.60-1.30); FREE T4 (FREE THYROXINE) 0.79 ng/dL (0.76-1.46); GLOMERULAR FILTR. RATE CALC > 60 mL/min (>60); GLUCOSE,RANDOM 86 mg/dL (70-110); HDL CHOLESTEROL 42 mg/dL (40-60); LDL CHOL (CALC.) 70 mg/dL (0-130); SODIUM SERUM 141 mmol/L (136-145); THYROID STIMULATING HORMONE 8.67 uIU/mL (0.36-3.74); TOTAL PROTEIN, SERUM 6.6 g/dL (6.4-8.2); TRIGLYCERIDES 19 mg/dL (15-150); UREA NITROGEN, BLOOD 12 mg/dL (7-18)
[2021-10-18 08:54] VITALS: BP 124/78
[2021-10-18] MEDS: HALOPERIDOL 5 MG TABLET PO PRN (16:02)
[2021-10-18 16:17] VITALS: BP 133/82
[2021-10-18] MEDS: QUEtiapine FUMARATE 200 MG TABLET PO SCH (20:48)
[2021-10-19] MEDS: HALOPERIDOL 5 MG TABLET PO PRN (03:59)
[2021-10-19] MEDS: LORazepam 2 MG TABLET PO PRN (03:59)
[2021-10-19 04:13] VITALS: BP 122/79
[2021-10-19] MEDS: LEVOTHYROXINE SODIUM 100 MCG TABLET PO SCH (06:49)
[2021-10-19 08:37] VITALS: BP 114/60
[2021-10-19 16:19] VITALS: BP 138/96
[2021-10-19] MEDS: QUEtiapine FUMARATE 200 MG TABLET PO SCH (20:27)
[2021-10-20 00:41] VITALS: BP 122/77
[2021-10-20] MEDS: LEVOTHYROXINE SODIUM 100 MCG TABLET PO SCH (06:07)
[2021-10-20 08:31] VITALS: BP 119/74
[2021-10-20] MEDS: LORazepam 2 MG TABLET PO PRN (14:08)
[2021-10-20 16:16] VITALS: BP 140/85
[2021-10-20] MEDS: QUEtiapine FUMARATE 200 MG TABLET PO SCH (20:11)
[2021-10-21 04:07] VITALS: BP 121/70
[2021-10-21] MEDS: LEVOTHYROXINE SODIUM 100 MCG TABLET PO SCH (06:09)
[2021-10-21 06:50] LABS: AMPHET/METH SCREEN,URINE NEGATIVE (NEGATIVE); BARBITURATE SCREEN, URINE NEGATIVE (NEGATIVE); BENZODIAZEPINES SCREEN,URINE NEGATIVE (NEGATIVE); CANNABINOID SCREEN,URINE NEGATIVE (NEGATIVE); COCAINE SCREEN,URINE NEGATIVE (NEGATIVE); METHADONE SCREEN, URINE NEGATIVE (NEGATIVE); OPIATE SCREEN,URINE NEGATIVE (NEGATIVE)
[2021-10-21 06:52] LABS: PHENCYCLIDINE SCREEN,URINE NEGATIVE (NEGATIVE)
[2021-10-21 07:09] LABS: APPEARANCE,URINE CLEAR (CLEAR); BILIRUBIN,URINE NEGATIVE (NEGATIVE); GLUCOSE, URINE (UA) NEGATIVE (NEGATIVE); KETONES,URINE NEGATIVE (NEGATIVE); LEUKOCYTE ESTERASE ,URINE NEGATIVE (NEGATIVE); NITRATE,URINE NEGATIVE (NEGATIVE); PROTEIN,URINE NEGATIVE (NEGATIVE)
[2021-10-21 07:20] LABS: BACTERIA,URINE None Seen /HPF (None Seen); OCCULT BLOOD,URINE MODERATE (NEGATIVE); WBC,URINE None Seen /HPF (0-5)
[2021-10-21 08:25] VITALS: BP 129/66
[2021-10-21] MEDS: LORazepam 2 MG TABLET PO PRN (11:44)
[2021-10-21 16:09] VITALS: BP 126/67
[2021-10-21 20:29] VITALS: BP 117/71
[2021-10-21] MEDS: IBUPROFEN 600 MG TABLET PO PRN (20:34)
[2021-10-21] MEDS: SULFAMETHOX/TRIMETH DS 800-160 MG/TABLET PO SCH (20:35)
[2021-10-21] MEDS: QUEtiapine FUMARATE 200 MG TABLET PO SCH (20:35)
[2021-10-22 05:25] VITALS: BP 137/78
[2021-10-22] MEDS: LEVOTHYROXINE SODIUM 100 MCG TABLET PO SCH (06:03)
[2021-10-22 08:32] VITALS: BP 136/73
[2021-10-22] MEDS: SULFAMETHOX/TRIMETH DS 800-160 MG/TABLET PO SCH ×2 (08:48→20:36)
[2021-10-22] MEDS: SERTRALINE HCL 50 MG TABLET PO SCH (08:49)
[2021-10-22] MEDS: LORazepam 2 MG TABLET PO PRN (08:59)
[2021-10-22] MEDS: BACITRACIN 28 GM OINTMENT TP SCH ×2 (09:02→16:30)
[2021-10-22 13:56] LABS: GLUCOMETER DEV NAME(LOC) POC.BV
[2021-10-22 16:19] VITALS: BP 134/74
[2021-10-22] MEDS: QUEtiapine FUMARATE 200 MG TABLET PO SCH (20:36)
[2021-10-23 02:07] VITALS: BP 127/69
[2021-10-23] MEDS: LEVOTHYROXINE SODIUM 100 MCG TABLET PO SCH (06:30)
[2021-10-23] MEDS: SULFAMETHOX/TRIMETH DS 800-160 MG/TABLET PO SCH ×2 (08:25→20:28)
[2021-10-23] MEDS: SERTRALINE HCL 50 MG TABLET PO SCH (08:25)
[2021-10-23] MEDS: BACITRACIN 28 GM OINTMENT TP SCH ×2 (08:26→16:19)
[2021-10-23 08:35] VITALS: BP 131/72
[2021-10-23] MEDS: LORazepam 2 MG TABLET PO PRN (13:30)
[2021-10-23 16:26] VITALS: BP 142/78
[2021-10-23] MEDS: QUEtiapine FUMARATE 200 MG TABLET PO SCH (20:28)
[2021-10-24 01:00] VITALS: BP 128/80
[2021-10-24] MEDS: LEVOTHYROXINE SODIUM 100 MCG TABLET PO SCH (06:20)
[2021-10-24 08:21] VITALS: BP 117/68
[2021-10-24] MEDS: SERTRALINE HCL 50 MG TABLET PO SCH (10:33)
[2021-10-24] MEDS: BACITRACIN 28 GM OINTMENT TP SCH ×2 (10:33→16:32)
[2021-10-24] MEDS: SULFAMETHOX/TRIMETH DS 800-160 MG/TABLET PO SCH ×2 (10:33→20:55)
[2021-10-24 16:19] VITALS: BP 115/65
[2021-10-24] MEDS: QUEtiapine FUMARATE 200 MG TABLET PO SCH (20:56)
[2021-10-25 01:18] VITALS: BP 119/66
[2021-10-25] MEDS: LEVOTHYROXINE SODIUM 100 MCG TABLET PO SCH (06:29)
[2021-10-25] MEDS: SERTRALINE HCL 50 MG TABLET PO SCH (08:33)
[2021-10-25] MEDS: SULFAMETHOX/TRIMETH DS 800-160 MG/TABLET PO SCH ×2 (08:33→21:09)
[2021-10-25] MEDS: BACITRACIN 28 GM OINTMENT TP SCH ×2 (08:33→16:24)
[2021-10-25 08:35] VITALS: BP 127/73
[2021-10-25] MEDS ORDERED: MULTIVITAMINS WITH MINERALS, THERAPEUTIC TABLET PO SCH (09:00)
[2021-10-25 16:13] VITALS: BP 119/76
[2021-10-25 20:15] VITALS: BP 121/74
[2021-10-25] MEDS: IBUPROFEN 600 MG TABLET PO PRN (20:18)
[2021-10-25] MEDS: QUEtiapine FUMARATE 200 MG TABLET PO SCH (21:09)
[2021-10-26 00:43] VITALS: BP 117/68
[2021-10-26] MEDS: LEVOTHYROXINE SODIUM 100 MCG TABLET PO SCH (06:36)
[2021-10-26 08:22] VITALS: BP 134/69
[2021-10-26] MEDS: SERTRALINE HCL 50 MG TABLET PO SCH (08:25)
[2021-10-26] MEDS: BACITRACIN 28 GM OINTMENT TP SCH ×2 (08:25→16:28)
[2021-10-26] MEDS: SULFAMETHOX/TRIMETH DS 800-160 MG/TABLET PO SCH ×2 (08:25→20:37)
[2021-10-26] MEDS: MULTIVITAMINS WITH IRON TABLET PO SCH (08:25)
[2021-10-26 09:20] LABS: % IRON SATURATION 22.2 % (30-44); PROSTATE SPECIFIC ANTIGEN 0.34 ng/mL (0.00-4.00)
[2021-10-26 16:43] VITALS: BP 136/77
[2021-10-26] MEDS: QUEtiapine FUMARATE 200 MG TABLET PO SCH (20:37)
[2021-10-27 01:30] VITALS: BP 138/86
[2021-10-27] MEDS: LEVOTHYROXINE SODIUM 100 MCG TABLET PO SCH (06:30)
[2021-10-27] MEDS: MULTIVITAMINS WITH IRON TABLET PO SCH (06:57)
[2021-10-27 08:21] VITALS: BP 124/74
[2021-10-27] MEDS: SERTRALINE HCL 50 MG TABLET PO SCH (08:51)
[2021-10-27] MEDS: BACITRACIN 28 GM OINTMENT TP SCH ×2 (08:51→16:29)
[2021-10-27] MEDS: SULFAMETHOX/TRIMETH DS 800-160 MG/TABLET PO SCH ×2 (08:51→20:26)
[2021-10-27 16:23] VITALS: BP 116/62
[2021-10-27] MEDS: QUEtiapine FUMARATE 200 MG TABLET PO SCH (21:22)
[2021-10-28 05:16] VITALS: BP 121/78
[2021-10-28] MEDS: MULTIVITAMINS WITH IRON TABLET PO SCH (06:10)
[2021-10-28] MEDS: LEVOTHYROXINE SODIUM 100 MCG TABLET PO SCH (06:10)
[2021-10-28] MEDS: SULFAMETHOX/TRIMETH DS 800-160 MG/TABLET PO SCH ×2 (08:02→19:46)
[2021-10-28] MEDS: SERTRALINE HCL 50 MG TABLET PO SCH (08:02)
[2021-10-28 08:30] VITALS: BP 142/93
[2021-10-28] MEDS: BACITRACIN 28 GM OINTMENT TP SCH ×2 (09:15→16:15)
[2021-10-28 16:16] VITALS: BP 144/77
[2021-10-28] MEDS: IBUPROFEN 600 MG TABLET PO PRN (16:21)
[2021-10-28] MEDS ORDERED: QUET200T30 PO (18:31)
[2021-10-28] MEDS ORDERED: SERT-439 PO (18:31)
[2021-10-28] MEDS ORDERED: SERT-158 PO (19:00)
[2021-10-28] MEDS ORDERED: QUET200T PO (19:00)
== END 2021-10-28 19:50 | disposition home or self-care (01) | DRG 750 ==
LOC: B2S 23:56
PROVIDERS: ADMIT Psychiatry & Neurology Psychiatry; ATTEND Psychiatry & Neurology Psychiatry
DX: F25.9 Schizoaffective disorder, unspecified (principal); R45.851 Suicidal ideations; I10 Essential (primary) hypertension; F10.129 Alcohol abuse with intoxication, unspecified; E66.9 Obesity, unspecified; F41.9 Anxiety disorder, unspecified; F32.A Depression, unspecified; F17.200 Nicotine dependence, unspecified, uncomplicated; G47.00 Insomnia, unspecified; K59.00 Constipation, unspecified; F19.10 Other psychoactive substance abuse, uncomplicated; Z20.822 Contact with and (suspected) exposure to COVID-19; X58.XXXA Exposure to other specified factors, initial encounter; Y90.9 Presence of alcohol in blood, level not specified; S51.802A Unspecified open wound of left forearm, initial encounter; Z88.0 Allergy status to penicillin; Z71.41 Alcohol abuse counseling and surveillance of alcoholic; Z71.51 Drug abuse counseling and surveillance of drug abuser; Z71.6 Tobacco abuse counseling; Z68.33 Body mass index [BMI] 33.0-33.9, adult; Z28.21 Immunization not carried out because of patient refusal; Y93.89 Activity, other specified; Y92.89 Other specified places as the place of occurrence of the external cause; Y99.8 Other external cause status
CPT/HCPCS: 80053; 80061; 80307; 81001; 83036; 83540; 83550; 84153; 84154; 84439; 84443; 85025; 87070; 87081; 87205

== ENCOUNTER 2022-03-22 16:47 | Inpatient (IN) | payer MEDICAID ==
[~2022-03-22] VITALS: Ht 180.3 cm; Wt 101.6 kg
[~2022-03-22 16:47] MED LIST changes: +MULT-660 PO; -OLAN7.5T22 PO; +QUET200T30 PO; +SERT-439 PO
[2022-03-22 19:15] VITALS: BP 145/90
[2022-03-22 19:15] LABS: GLUCOMETER DEV NAME(LOC) POC.BV
[2022-03-23 08:10] VITALS: BP 134/83
[2022-03-23] MEDS ORDERED: ZOLPIDEM TARTRATE 10 MG TABLET PO PRN (17:30)
[2022-03-23] MEDS ORDERED: HALOPERIDOL 5 MG TABLET PO PRN (17:30)
[2022-03-23] MEDS: LORazepam 2 MG TABLET PO PRN (17:38)
[2022-03-23 20:14] VITALS: BP 138/75
[2022-03-24 08:09] VITALS: BP 133/65
[2022-03-24] MEDS: SERTRALINE HCL 50 MG TABLET PO SCH (09:16)
[2022-03-24 20:19] VITALS: BP 132/79
[2022-03-24] MEDS: QUEtiapine FUMARATE 300 MG TABLET PO SCH (20:32)
[2022-03-25 08:39] VITALS: BP 112/66
[2022-03-25] MEDS: SERTRALINE HCL 50 MG TABLET PO SCH (09:33)
[2022-03-25] MEDS: LORazepam 2 MG TABLET PO PRN (14:00)
[2022-03-25 17:44] VITALS: BP 134/89
[2022-03-25 20:36] VITALS: BP 119/65
[2022-03-25] MEDS: QUEtiapine FUMARATE 300 MG TABLET PO SCH (20:51)
[2022-03-26] MEDS: SERTRALINE HCL 50 MG TABLET PO SCH (08:19)
[2022-03-26 08:54] VITALS: BP 117/68
[2022-03-26 20:21] VITALS: BP 129/72
[2022-03-26] MEDS: QUEtiapine FUMARATE 300 MG TABLET PO SCH (21:02)
[2022-03-27 08:34] VITALS: BP 116/72
[2022-03-27] MEDS: SERTRALINE HCL 50 MG TABLET PO SCH (08:41)
[2022-03-27] MEDS: LORazepam 2 MG TABLET PO PRN (10:49)
[2022-03-27 20:15] VITALS: BP 142/85
[2022-03-27] MEDS: QUEtiapine FUMARATE 300 MG TABLET PO SCH (20:30)
[2022-03-28 03:20] VITALS: BP 113/74
[2022-03-28 07:36] LABS: GLUCOMETER DEV NAME(LOC) POC.BV
[2022-03-28 08:19] VITALS: BP 114/77
[2022-03-28] MEDS: SERTRALINE HCL 50 MG TABLET PO SCH (08:28)
[2022-03-28] MEDS ORDERED: QUET300T19 PO (11:04)
[2022-03-28] MEDS ORDERED: SERT-439 PO (11:04)
== END 2022-03-28 13:15 | disposition home or self-care (01) | DRG 750 ==
LOC: B2S 17:30
PROVIDERS: ADMIT Psychiatry & Neurology Psychiatry; ATTEND Psychiatry & Neurology Psychiatry
DX: F25.9 Schizoaffective disorder, unspecified (principal); R45.851 Suicidal ideations; F10.10 Alcohol abuse, uncomplicated; Z20.822 Contact with and (suspected) exposure to COVID-19; I10 Essential (primary) hypertension; G47.00 Insomnia, unspecified; K59.00 Constipation, unspecified; F41.9 Anxiety disorder, unspecified; F19.10 Other psychoactive substance abuse, uncomplicated; Z88.0 Allergy status to penicillin; Z72.0 Tobacco use; Z71.6 Tobacco abuse counseling
CPT/HCPCS: 87081; Z7610

== ENCOUNTER 2022-04-09 14:40 | Inpatient (IN) | payer MEDICAID ==
[~2022-04-09] VITALS: Ht 180.3 cm; Wt 97.2 kg
[~2022-04-09 14:40] MED LIST changes: -MULT-660 PO; -QUET200T PO; -QUET200T30 PO; +QUET300T19 PO; -SERT-158 PO
[2022-04-09] MEDS ORDERED: ZOLPIDEM TARTRATE 10 MG TABLET PO PRN (21:45)
[2022-04-09] MEDS ORDERED: HALOPERIDOL 5 MG TABLET PO PRN (21:45)
[2022-04-09] MEDS ORDERED: PNEUMOCOCCAL VACCINE POLYVALENT 0.5 ML VIAL [PPSV23] IM. ONE (22:15)
[2022-04-09 23:10] VITALS: BP 132/78
[2022-04-10] VITALS (8 sets, daily range): BP systolic 101–127; BP diastolic 62–78
[2022-04-10 07:22] LABS: BASOPHILS % (AUTO) 1.2 % (0.0-2.0); EOSINOPHILS % (AUTO) 5.4 % (1.0-6.0); HEMATOCRIT 37.2 % (41-53); HEMOGLOBIN 12.7 g/dL (13.5-17.5); LYMPHOCYTES # (AUTO) 1.2 K/uL (1.0-4.8); LYMPHOCYTES % (AUTO) 40.3 % (22.0-44.0); MEAN CORPUSCULAR HEMOGLOBIN 33.8 pg (26.0-34.0); MEAN CORPUSCULAR HGB CONC 34.2 G/dL (31.0-37.0); MEAN CORPUSCULAR VOLUME 99 fL (80-100); MONOCYTES # (AUTO) 0.3 K/uL (0.1-1.0); MONOCYTES % (AUTO) 9.2 % (2.0-9.0); NEUTROPHILS # (AUTO) 1.3 K/uL (1.8-7.7); NEUTROPHILS % (AUTO) 43.9 % (40.0-70.0); PLATELET COUNT (AUTO) 76 K/uL (150-450); RED BLOOD CELL COUNT(AUTO) 3.77 MIL/uL (4.50-5.90); RED CELL DISTRIBUTION WIDTH 18.2 % (11.5-14.5)
[2022-04-10 07:44] LABS: ALANINE AMINOTRANSFERASE 35 U/L (12-78); ALBUMIN 2.6 g/dL (3.4-5.0); ALKALINE PHOSPHATASE 229 U/L (46-116); ANION GAP 8 mmol/L (8-16); ASPARTATE AMINOTRANSFERASE 40 U/L (15-37); BILIRUBIN,TOTAL 1.2 mg/dL (0.1-1.0); CALCIUM, TOTAL 9.1 mg/dL (8.8-10.5); CARBON DIOXIDE 24 mmol/L (22-29); CHLORIDE 112 mmol/L (98-107); CHOLESTEROL 102 mg/dL (131-200); GLUCOSE,RANDOM 80 mg/dL (70-110); HDL CHOLESTEROL 46 mg/dL (40-60); POTASSIUM 3.5 mmol/L (3.5-5.1); SODIUM SERUM 144 mmol/L (136-145); TOTAL PROTEIN, SERUM 6.5 g/dL (6.4-8.2); TRIGLYCERIDES 23 mg/dL (15-150); UREA NITROGEN, BLOOD 11 mg/dL (7-18)
[2022-04-10 07:45] LABS: CHOL/HDL RATIO 2.2 (4.2-7.3); LDL CHOL (CALC.) 51 mg/dL (0-130)
[2022-04-10 07:49] LABS: GLOMERULAR FILTR. RATE CALC > 60 mL/min (>60)
[2022-04-10 07:59] LABS: HEMOGLOBIN A1C 4.5 % (3.8-5.6)
[2022-04-10 08:25] LABS: FREE T4 (FREE THYROXINE) 0.84 ng/dL (0.76-1.46); THYROID STIMULATING HORMONE 3.64 uIU/mL (0.36-3.74)
[2022-04-10] MEDS ORDERED: BACITRACIN 28 GM OINTMENT TP PRN (14:15)
[2022-04-10] MEDS ORDERED: PETROLATUM,WHITE 28 GM JELLY TP PRN (14:15)
[2022-04-10] MEDS ORDERED: IBUPROFEN 600 MG TABLET PO PRN (14:15)
[2022-04-10] MEDS ORDERED: CloNIDine HCL 0.1 MG TABLET PO PRN (14:15)
[2022-04-10] MEDS ORDERED: OMEPRAZOLE 20 MG CAPSULE PO PRN (14:15)
[2022-04-10] MEDS ORDERED: DOCUSATE SODIUM 100 MG CAPSULE PO PRN (14:15)
[2022-04-10] MEDS ORDERED: ACETAMINOPHEN 325 MG TABLET PO PRN (14:15)
[2022-04-10] MEDS ORDERED: ALBUTEROL SULFATE HFA 90 MCG/PUFF 8 GM INHALER IH PRN (14:15)
[2022-04-10] MEDS ORDERED: BENZOCAINE/MENTHOL LOZENGE PO PRN (14:15)
[2022-04-10] MEDS ORDERED: ONDANSETRON HCL 4 MG TABLET PO PRN (14:15)
[2022-04-10] MEDS ORDERED: MAGNESIUM HYDROXIDE SUSPENSION 30 ML UDCUP PO PRN (14:15)
[2022-04-10] MEDS ORDERED: MAG HYDROX/AL HYDROX/SIMETH ES 30 ML SUSPENSION UDCUP PO PRN (14:15)
[2022-04-10] MEDS ORDERED: LOPERAMIDE HCL 2 MG CAPSULE PO PRN (14:15)
[2022-04-10] MEDS: QUEtiapine FUMARATE 300 MG TABLET PO SCH (20:40)
[2022-04-11 01:00] VITALS: BP 139/80
[2022-04-11 01:33] VITALS: BP 139/80
[2022-04-11 05:54] VITALS: BP 124/76
[2022-04-11 08:22] VITALS: BP 134/85
[2022-04-11] MEDS: SERTRALINE HCL 50 MG TABLET PO SCH (08:57)
[2022-04-11 09:33] VITALS: BP 134/85
[2022-04-11] MEDS: LORazepam 2 MG TABLET PO PRN (13:20)
[2022-04-11] MEDS: LACTULOSE 20 GM/30 ML SOLUTION UDCUP PO SCH (16:23)
[2022-04-11] MEDS: QUEtiapine FUMARATE 300 MG TABLET PO SCH (20:21)
[2022-04-11 22:41] VITALS: BP 136/72
[2022-04-12] MEDS: SERTRALINE HCL 50 MG TABLET PO SCH (08:46)
[2022-04-12] MEDS: LACTULOSE 20 GM/30 ML SOLUTION UDCUP PO SCH ×2 (08:46→16:51)
[2022-04-12 08:48] VITALS: BP 102/66
[2022-04-12] MEDS: LORazepam 2 MG TABLET PO PRN (14:56)
[2022-04-12 20:32] VITALS: BP 134/67
[2022-04-12] MEDS: QUEtiapine FUMARATE 300 MG TABLET PO SCH (20:48)
[2022-04-13 00:31] VITALS: BP 111/71
[2022-04-13 00:34] VITALS: BP 109/76
[2022-04-13 08:19] VITALS: BP 122/61
[2022-04-13] MEDS: SERTRALINE HCL 50 MG TABLET PO SCH (08:38)
[2022-04-13] MEDS: LACTULOSE 20 GM/30 ML SOLUTION UDCUP PO SCH ×2 (08:38→16:19)
[2022-04-13] MEDS: LORazepam 2 MG TABLET PO PRN (14:16)
[2022-04-13 20:16] VITALS: BP 136/87
[2022-04-13] MEDS: QUEtiapine FUMARATE 300 MG TABLET PO SCH (21:17)
[2022-04-14] MEDS: LACTULOSE 20 GM/30 ML SOLUTION UDCUP PO SCH ×2 (08:12→16:34)
[2022-04-14] MEDS: SERTRALINE HCL 50 MG TABLET PO SCH (08:12)
[2022-04-14] MEDS: LORazepam 2 MG TABLET PO PRN ×2 (08:19→18:35)
[2022-04-14 08:40] VITALS: BP 127/67
[2022-04-14 10:56] LABS: GLUCOMETER DEV NAME(LOC) POC.BV
[2022-04-14 20:24] VITALS: BP 118/69
[2022-04-14] MEDS: QUEtiapine FUMARATE 300 MG TABLET PO SCH (20:42)
[2022-04-15 08:31] VITALS: BP 114/66
[2022-04-15] MEDS: SERTRALINE HCL 50 MG TABLET PO SCH (09:05)
[2022-04-15] MEDS: LACTULOSE 20 GM/30 ML SOLUTION UDCUP PO SCH ×2 (09:05→16:47)
[2022-04-15] MEDS: LORazepam 2 MG TABLET PO PRN (14:47)
[2022-04-15] MEDS: QUEtiapine FUMARATE 300 MG TABLET PO SCH (20:32)
[2022-04-15 20:40] VITALS: BP 109/65
[2022-04-16 08:45] VITALS: BP 119/66
[2022-04-16] MEDS: SERTRALINE HCL 50 MG TABLET PO SCH (08:46)
[2022-04-16] MEDS: MULTIVITAMINS WITH MINERALS, THERAPEUTIC TABLET PO SCH (08:46)
[2022-04-16] MEDS: LACTULOSE 20 GM/30 ML SOLUTION UDCUP PO SCH ×2 (08:46→16:32)
[2022-04-16] MEDS: LORazepam 2 MG TABLET PO PRN ×2 (11:46→19:08)
[2022-04-16 20:17] VITALS: BP 133/75
[2022-04-16] MEDS: QUEtiapine FUMARATE 300 MG TABLET PO SCH (21:04)
[2022-04-17] MEDS: MULTIVITAMINS WITH MINERALS, THERAPEUTIC TABLET PO SCH (08:11)
[2022-04-17] MEDS: SERTRALINE HCL 50 MG TABLET PO SCH (08:11)
[2022-04-17] MEDS: LORazepam 2 MG TABLET PO PRN (08:11)
[2022-04-17] MEDS: LACTULOSE 20 GM/30 ML SOLUTION UDCUP PO SCH ×2 (08:11→16:06)
[2022-04-17 08:24] VITALS: BP 115/72
[2022-04-17 15:00] LABS: GLUCOMETER DEV NAME(LOC) POC.BV
[2022-04-17 20:29] VITALS: BP 137/83
[2022-04-17] MEDS: QUEtiapine FUMARATE 300 MG TABLET PO SCH (20:29)
[2022-04-18] MEDS: MULTIVITAMINS WITH MINERALS, THERAPEUTIC TABLET PO SCH (08:25)
[2022-04-18] MEDS: LORazepam 2 MG TABLET PO PRN (08:25)
[2022-04-18] MEDS: SERTRALINE HCL 50 MG TABLET PO SCH (08:25)
[2022-04-18] MEDS: LACTULOSE 20 GM/30 ML SOLUTION UDCUP PO SCH ×3 (08:25→12:06)
[2022-04-18 09:02] VITALS: BP 115/73
[2022-04-18] MEDS ORDERED: LACT10SO10 PO (10:11)
[2022-04-19] MEDS ORDERED: LACT10SO10 PO (20:16)
== END 2022-04-18 12:30 | disposition home or self-care (01) | DRG 750 ==
LOC: B2S 20:13
PROVIDERS: ADMIT Psychiatry & Neurology Psychiatry; ATTEND Psychiatry & Neurology Psychiatry
DX: F25.9 Schizoaffective disorder, unspecified (principal); R45.851 Suicidal ideations; E66.9 Obesity, unspecified; F10.10 Alcohol abuse, uncomplicated; I10 Essential (primary) hypertension; Z20.822 Contact with and (suspected) exposure to COVID-19; G47.00 Insomnia, unspecified; K59.00 Constipation, unspecified; F17.210 Nicotine dependence, cigarettes, uncomplicated; F19.10 Other psychoactive substance abuse, uncomplicated; Z88.0 Allergy status to penicillin; Z68.29 Body mass index [BMI] 29.0-29.9, adult; Z79.899 Other long term (current) drug therapy; Z71.6 Tobacco abuse counseling
CPT/HCPCS: 80053; 80061; 82140; 83036; 84439; 84443; 85025; 87081; G0480